=== PATIENT | male | born 1985 | race Caucasian/White ===

== ENCOUNTER 2018-01-26 16:58 | Emergency (ER) | payer OTHER ==
[~2018-01-26] VITALS: Ht 177.8 cm; Wt 72.6 kg
[~2018-01-26 16:58] MED LIST: AMOXICILLI400 MG/5 M PO; ASPIR 8181 MG PO; ASPIRIN81 M2 PO; AUGMENTIN 875-1 EACH PO; CIPRO OPHTHALMIC; CIPROFLOXACIN500 M1 PO; HYDROCODONE-AP1 EAC6 PO; IBUPROFEN 800800 M1 PO; LIDOCAINE VISC100 ML MUCOUS MEM; MINOCIN100 MG PO; NAPROSYN500 MG PO; PERCOCET 7.5-31 EACH PO; PROMETHAZINE D480 ML PO; ZOFRAN ODT4 MG PO; ZPAK PO
[2018-01-26] MEDS ORDERED: PHENERGAN 25 MG25 MG PO (18:46)
[2018-01-26] MEDS ORDERED: FIORINAL 50-321 EACH PO (18:47)
[2018-01-26 19:24] VITALS: BP 119/77
== END 2018-01-26 19:25 | disposition home or self-care (01) ==
LOC: M.ERS 16:58
DX: R51 Headache (principal); R11.2 Nausea with vomiting, unspecified; R42 Dizziness and giddiness; I10 Essential (primary) hypertension; Z91.018 Allergy to other foods